=== PATIENT | male | born 1955 | race Caucasian/White ===

== ENCOUNTER 2023-02-13 05:57 | Day surgery (SDC) | payer MEDICARE ==
[2023-02-05 15:41] VITALS: BP 141/70; PULSE 65; RESP 18
[~2023-02-13] VITALS: Ht 172.7 cm; Wt 99.9 kg
[2023-02-13] VITALS (16 sets, daily range): BP systolic 105–130; BP diastolic 53–70; PULSE 63–74; RESP 15–18
[~2023-02-13 05:57] MED LIST: AMLO1TAB99 PO; BENA1TAB18 PO; CLOP75TA32 PO; DAPA10TA PO; DULA3PEN SQ; METF-446 PO; NAPR-1023 PO; PANT40TA54 PO
[2023-02-13] MEDS ORDERED: INDOMETHACIN 100 MG SUPP.RECT RC ONE (07:00)
[2023-02-13 07:01] LABS: HEMATOCRIT 41.9 % (42-54); MEAN CORPUSCULAR HEMOGLOBIN 31.6 pg (27.0-33.0); MEAN CORPUSCULAR HGB CONC 34.6 g/dL (32.0-36.0); MEAN CORPUSCULAR VOLUME 91.3 fL (79-99); PLATELET COUNT (AUTO) 254 K/uL (130-400); RED BLOOD CELL COUNT(AUTO) 4.59 MIL/uL (4.50-6.20); RED CELL DISTRIBUTION WIDTH 16.2 % (11.0-15.5); WHITE BLOOD COUNT (AUTO) 5.8 K/uL (4.8-10.8)
[2023-02-13] MEDS ORDERED: IOHEXOL-350 50ML VIAL IV ONE (07:11)
[2023-02-13 07:14] LABS: INR < 0.93 (0.85-1.15); PROTHROMBIN TIME 10.6 SEC (9.6-11.6)
[2023-02-13 07:15] LABS: PARTIAL THROMBOPLASTIN TIME 29.7 SEC (26.3-35.5)
[2023-02-13] MEDS ORDERED: PROPOFOL 10 MG/ML 20ML VIAL IV ONE (07:15)
[2023-02-13] MEDS ORDERED: FENTANYL CITRATE PF 50 MCG/1 ML 2ML VIAL ONE (07:15)
[2023-02-13] MEDS ORDERED: SUCCINYLCHOLINE CHLORIDE 20 MG/ML 10 ML VIAL ONE (07:15)
[2023-02-13] MEDS ORDERED: ROCURONIUM BROMIDE 10MG/1ML 5ML VL ONE (07:16)
[2023-02-13] MEDS ORDERED: LIDOCAINE PF 100MG/5ML (2%) SYRINGE 5ML ONE (07:16)
[2023-02-13 07:17] LABS: ALBUMIN 2.7 g/dL (3.5-5.0); BILIRUBIN,TOTAL 9.1 mg/dL (0.2-1.0); CREATININE 1.7 mg/dL (0.5-1.5); POTASSIUM 3.2 mmol/L (3.5-5.1); TOTAL PROTEIN, SERUM 7.5 g/dL (6.0-8.3)
[2023-02-13] MEDS ORDERED: GLUCAGON 1MG KIT 1 MG ML ONE (07:32)
[2023-02-13] MEDS ORDERED: ONDANSETRON 4MG INJ ONE ×2 (07:46→08:45)
[2023-02-13] MEDS ORDERED: NEOSTIGMINE 5MG/5ML SYR IV ONE (08:24)
[2023-02-13 08:52] LABS: BAND NEUTROPHILS % (MANUAL) 1 % (0-2); EOSINOPHILS % (MANUAL) 3 % (1-6); LYMPHOCYTES % (MANUAL) 30 % (22-44); MAN.DIFF COMMENT-IMPRESSION MANUAL DIFFERENTIAL; MONOCYTES % (MANUAL) 15 % (2-9); SEGMENTED NEUTROPHILS % 51 % (40-70); TOTAL CELLS COUNTED 100
[2023-02-13 08:53] LABS: PLATELET MORPHOLOGY COMMENT ADEQUATE
== END 2023-02-13 10:30 | disposition home or self-care (01) ==
LOC: DAH 05:57 → ENDO 05:57
PROVIDERS: ATTEND Internal Medicine Gastroenterology
DX: R93.2 Abnormal findings on diagnostic imaging of liver and biliary tract (principal); C24.9 Malignant neoplasm of biliary tract, unspecified; K83.1 Obstruction of bile duct; R94.5 Abnormal results of liver function studies; R17 Unspecified jaundice; I63.9 Cerebral infarction, unspecified; I10 Essential (primary) hypertension; I45.10 Unspecified right bundle-branch block; E78.5 Hyperlipidemia, unspecified; K21.9 Gastro-esophageal reflux disease without esophagitis; E11.9 Type 2 diabetes mellitus without complications; Z79.01 Long term (current) use of anticoagulants; Z79.899 Other long term (current) drug therapy; Z98.890 Other specified postprocedural states; Z90.89 Acquired absence of other organs; Z72.89 Other problems related to lifestyle; Z79.84 Long term (current) use of oral hypoglycemic drugs
CPT/HCPCS: 43274; 80053; 85025; 85610; 85730; 82948 ×2; 36415; 88112; 88305 ×2; 74330; 43273; 93005; 43261; J2710; J0330; J1610; J3490; J2001; J2704; J2405 ×2; Q9967; A4649; C1769 ×2; A4215 ×2; A4223; A4657 ×2; A7002; A4222; A4221; A4663; A4216; J7030; A4606; C1773; J3010